=== PATIENT | female | born 1975 | race Caucasian/White ===

== ENCOUNTER 2021-08-28 18:23 | Emergency (ER) | payer OTHER ==
[~2021-08-28] VITALS: Ht 157.5 cm; Wt 70.0 kg
[2021-08-28] MEDS ORDERED: ACETAMINOPHEN 325MG TABLET PO STA (23:09)
[2021-08-29] MEDS ORDERED: BACITRACIN ZINC OINT UDPKT TOP ONE (00:15)
[2021-08-29] MEDS ORDERED: IBUP-2029 PO (00:21)
[2021-08-29] MEDS ORDERED: BO1 TP (00:21)
[2021-08-29] MEDS ORDERED: HYDR-4001 PO (00:32)
[2021-08-29 02:30] VITALS: BP 116/70
== END 2021-08-29 02:30 | disposition home or self-care (01) ==
LOC: ER 18:23
DX: S90.122A Contusion of left lesser toe(s) without damage to nail, initial encounter (principal); W01.0XXA Fall on same level from slipping, tripping and stumbling without subsequent striking against object, initial encounter; Y93.89 Activity, other specified; Y92.9 Unspecified place or not applicable
CPT/HCPCS: 73660; 99283